=== PATIENT | male | born 2005 ===

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

== ENCOUNTER 2025-03-03 08:32 | Outpatient (CLI) | payer BC, SELFPAY ==
--- NOTE | ~2025-03-03 | XR_ITS ---
[id number] Ordering provider: Kell Fish, [facility] History: . S99.912A - Unspecified injury of left ankle, initial enco... . Comparison: None. FINDINGS: BONES: No acute fracture or dislocation. JOINT SPACES: Normal. No tarsal coalition. SOFT TISSUES: Normal. IMPRESSION: No acute osseous abnormality left foot. Reviewed, dictated and finalized at location A.
--- NOTE | ~2025-03-03 | XR_ITS ---
XR ankle LT min 3V Ordering provider: Kell Fish, [facility] History: . S99.912A - Unspecified injury of left ankle, initial enco... . Comparison: None. FINDINGS: BONES: No acute fracture or dislocation. JOINT SPACES: The ankle mortise is normal. SOFT TISSUES: Normal. IMPRESSION: No acute osseous abnormality left ankle. Reviewed, dictated and finalized at location A.
== END 2025-03-03 08:33 | disposition home or self-care (01) ==
PROVIDERS: PCP Family Medicine; Visit Provider Physician Assistant Medical
DX: S99.912A Unspecified injury of left ankle, initial encounter (principal); X58.XXXA Exposure to other specified factors, initial encounter
CPT/HCPCS: 73610; 73630